=== PATIENT | female | born 1975 | race Caucasian/White ===

== ENCOUNTER → 2020-09-01 | Outpatient (CLI) | payer OTHER ==
--- NOTE | 2020-09-01 09:09 | KCIC ---
CERVICAL SPINE WO CONTRAST History:Reason: CERVICAL RADICULOPATHY / Spl. Instructions: / History: Neck pain into left arm with numbness and tingling since June. Technique: Multiplanar, multi sequential noncontrast MR imaging was performed of the cervical spine. Comparison: None Findings: Normal vertebral body height and alignment. No fracture. No pathologic signal abnormality within the cervical spinal cord. Partially empty sella. C2-C3: No canal or neuroforaminal narrowing. C3-C4: Small disc bulge. No canal narrowing. Left facet arthropathy. Mild left neuroforaminal narrowing. C4-C5: Small disc bulge. No canal narrowing. No neuroforaminal narrowing. Mild facet arthropathy. C5-C6: Small disc bulge. Mild cord flattening. Minimal canal narrowing. Uncovertebral and facet arthropathy on the right. Mild right neuroforaminal narrowing. No left neuroforaminal narrowing. C6-C7: Disc bulge with superimposed left foraminal/diverticular disc extrusion extending into the neuroforamen (series 3 image 5 and series 4 image 4. There is severe left neuroforaminal narrowing due to the disc extrusion compressing the exiting left nerve root. Correlate for radiculopathy. Heterogeneous appearance of the disc extrusion. Mild to moderate canal narrowing. Mild right neuroforaminal narrowing. C7-T1: No canal or neuroforaminal narrowing. Impression: 1. Multilevel cervical spondylosis most prominent C6-C7 with mild to moderate canal narrowing. 2. C6-C7 left foraminal disc extrusion with heterogeneous appearance raising concern for free fragment. 3. Severe left C6-C7 foraminal narrowing due to the disc extrusion with mass effect on the exiting nerve root. Correlate for radiculopathy. 4. Partially empty sella, often incidental, can be seen with intracranial hypertension or panhypopituitarism. Electronically signed by: Ant Coker DO (09/01/2020 9:06 AM) [facility]
== END ==
LOC: KCIC MRI 07:57
PROVIDERS: ATTEND Physician Assistant
DX: M47.22 Other spondylosis with radiculopathy, cervical region (principal); M48.02 Spinal stenosis, cervical region; M50.123 Cervical disc disorder at C6-C7 level with radiculopathy
CPT/HCPCS: 72141

== ENCOUNTER → 2020-09-15 | Outpatient (CLI) | payer OTHER ==
[~2020-09-15] MED LIST: METO-239 PO; PREG50CA91 PO
--- NOTE | 2020-09-15 12:47 | PDOC1 ---
INITIAL PAIN CONSULT DATE OF SERVICE: DOS: DATE: 09/15/20 TIME: 12:39 CHIEF COMPLAINT: Chief Complaint: Neck and left upper extremity pain HISTORY OF PRESENT ILLNESS: 44-year-old female presents with history of pain base the neck left upper extremity for about 2 months now not the result of any specific injury or accident that she is aware of spleen more noticeable 1 morning when she woke up and June of this year and the pain has been there ever since getting worse over time. Patient describes a pain in the base the neck and shoulder in the left upper extremity rating the left deltoid anterior posterior lateral as well as into the triceps and biceps region and forearm both anteriorly posteriorly and into the hand the thumb and first and second finger with numbness and tingling. Patient describes pain is constant sharp throbbing shooting in the left upper extremity with numbness and tingling in the hand radiating worse with repetitive motions worse with reaching overhead with the left arm lifting items driving a car with a left hand and doing fine motor movements are difficult because the numbness in her left hand patient also reports a burning sensation in the shoulder and arm itself. Patient reports it wakes her from sleep release twice a night does not affect her bowel bladder control or ability to walk patient did have some physical therapy July of this year which was helpful but only temporarily and did not have long-lasting effects. Patient rates her disability rating is 0-10 10 being the worst is a 7 in all categories family responsibilities recreation social activity sexual behavior occupation self-care and life support activities. Did have an MRI scan of the cervical spine showing multilevel cervical spondylosis most prominent C6-7 with a C6-7 left foraminal disc extrusion with heterogeneous appearance raising concern for free fragment with severe left C6-7 foraminal narrowing due to the disc extrusion with mass- effect on the exiting nerve root. Patient reports no overt motor loss but significant fatigability with the left upper extremity and left hand. Patient has [facility] year which was only mildly helpful but did not have any long-lasting improvement. Patient continues to do stretching strength exercises on her own at home at least 3 times daily. PAST MEDICAL HISTORY: PMH: Arthritis, tachycardia, cigarette smoking PREVIOUS SURGERIES: Past Surgical Hx: None CURRENT MEDICATIONS: Current Meds: Active Scripts Medications Dose Route/Sig Max Daily Dose Days Date Category Lyrica (Pregabalin) 50 Mg Capsule Unknown Dose PO HS 11/19/20 Reported Metoprolol Succinate ( Xl ) (Metoprolol Succinate) 25 Mg Tab.er.24h 1 Tab PO DAILY 09/15/20 Reported FAMILY HISTORY: Family Hx: No major medical problems or conditions that she is aware of SOCIAL HISTORY: Social Hx: Patient is not drink alcohol does smoke 1 pack cigarettes a day for the past 25 years not use any illegal illicit recreational drugs is lives with her spouse lives locally in [facility]. REVIEW OF SYSTEMS: ROS: Positive for those items mentioned in history of present illness, all systems are reviewed, otherwise negative, is complete full and well-documented on patient's chart PHYSICAL EXAM: VS: Blood pressure is 117/77 pulse 114 respirations 18 temperature 90.1 F height is 5 foot 4 inches weight is 223 pounds PE: PHYSICAL EXAMINATION: GENERAL: The patient is awake, alert, oriented, appropriate, very pleasant demeanor HEENT: Shows normocephalic, atraumatic. Extraocular movements are intact and symmetrical. Oral cavity: Mucous membranes moist and pink. Dentition is intact. NECK: Shows anterior throat supple without palpable lymphadenopathy noted. Swallow reflex symmetrical. CHEST: Shows normal on inspection. Breath sounds are clear bilaterally, no rales rhonchi or wheezes auscultated. HEART: Shows S1, S2 clear. No murmurs auscultated. ABDOMEN: Soft, nontender, nondistended. No palpable organomegaly is noted. No rebound or guarding demonstrated. BACK: Shows spine grossly in the midline. Normal-appearing cervical lordotic curvature. Cervical spine shows good rotation motion both laterally as well as extension flexion with some moderate tenderness with far left lateral rotation past 45 degrees closer to 90 degrees but nontender with right rotation. Patient has good extension good forward flexion without difficulty or pain reported. There is slightly increased thoracic kyphosis, some minor flattening of the lumbar lordotic curvature. Lumbar paraspinous muscles show symmetrical on inspection. The patient has good rotational motion of the lumbar spine, both laterally as well as extension and flexion without significant difficulty. No tenderness over the spinous processes, sacrum or sacroiliac regions. EXTREMITIES: Upper extremities show deep tendon reflexes 2+ in the biceps and triceps tendons. Motor exam is 5 on a scale of 5 with right strength, biceps and triceps flexion and 4/5 on the left. Peripheral pulses are 2+ radial. No peripheral edema is noted bilaterally. Upper extremities are warm and dry to touch, equal in color and appearance. Shoulder shrug is strong and intact without loss of strength on resistance as is abduction of the shoulder 90 degrees without loss of strength on resistance but with some moderate pain reported in the left shoulder and left posterior deltoid and triceps. SKIN: Shows warm and dry, good turgor. No edema. No sores, rashes or bruising throughout. IMPRESSION: Impression: 44-year-old female with 2-month history pain base the neck left shoulder and upper extremity in a radicular fashion following a C6-7 dermatomal distribution. MRI scan cervical spine as noted Arthritis Cigarette smoking Plan: Options were discussed with the patient including conservative medical management physical therapies interventional techniques. She would like to proceed with interventional techniques as she has done physical therapy already and is currently doing exercises and stretching strengthening on her own at home. We wait for preauthorization with her insurance provider once this is obtained we will plan on cervical epidural steroid injection translaminar approach at the C6-7 level. The meantime patient to continue with stretching strengthening physical therapy exercises. SAÚL DYER MD Sep 15, 2020 12:47
== END | disposition home or self-care (01) ==
LOC: PNCL 09:51
PROVIDERS: ATTEND Anesthesiology
DX: M79.602 Pain in left arm (principal); M54.2 Cervicalgia; M19.90 Unspecified osteoarthritis, unspecified site; Z87.891 Personal history of nicotine dependence; Z79.899 Other long term (current) drug therapy
CPT/HCPCS: G0463

== ENCOUNTER → 2020-09-29 | Outpatient (CLI) | payer OTHER ==
[~2020-09-29] MED LIST changes: +IOHEXOL 180 MG/ML 10 ML VIAL. ONE; +methylPREDNISolone ACETATE 40 MG/ML VIAL. ONE; +methylPREDNISolone ACETATE 80 MG/ML VIAL. ONE
--- NOTE | 2020-09-29 12:00 | PDOC ---
Progress Note - Pain Clinic Date of Service: DOS: DATE: 09/29/20 TIME: 11:55 Diagnosis: Dx: Cervical radiculopathy with cervical degenerative disease and cervical herniated disc History or Present Illness: HPI: 45-year-old female returns follow-up status post initial evaluation and preauthorization for cervical epidural steroid injection. Patient is obtained that now would like to proceed. Patient reports still significant pain base the neck left upper extremity shoulder arm radiating mostly the posterior aspect the triceps and the forearm into the hand as it was previously. Patient reports no real change since last visit that she was here for preauthorization. Patient reports her pain is a 7 on scale 10 is worse over the past week 7 on average 6 its least is a 7 today. Patient describes the pain as tingling and burning aching sharp shooting and becoming more constant in the left arm base of the neck on the left. Patient reports no new motor or sensory deficits or other complaints. Physical Exam: VS: Blood pressure is 118/81 pulse 96 respirations 18 temperature 96 F height is 5 foot 4 inches weight is 228 pounds PE: PHYSICAL EXAMINATION: GENERAL: The patient is awake, alert, oriented, appropriate, very pleasant d emeanor HEENT: Shows normocephalic, atraumatic. Extraocular movements are intact and symmetrical. Oral cavity: Mucous membranes moist and pink. NECK: Shows anterior throat supple without palpable lymphadenopathy noted. Swallow reflex symmetrical. CHEST: Shows normal on inspection. Breath sounds are clear bilaterally. HEART: Shows S1, S2 clear. No murmurs auscultated. ABDOMEN: Soft, nontender, nondistended, obese. No palpable organomegaly is noted. No rebound or guarding demonstrated. BACK: Shows spine grossly in the midline. Normal-appearing cervical lordotic curvature. Cervical paraspinous muscles show symmetrical on inspection with palpation some moderate tenderness diffusely bilaterally diffusely without significant radiation. He shows good rotation motion spine both laterally as well as full extension full forward flexion with some moderate pain reported with far left lateral rotation to the left shoulder but not to the right. There is slightly increased thoracic kyphosis, some minor flattening of the lumbar lordotic curvature. s. EXTREMITIES: Upper extremities show deep tendon reflexes 2+ in the biceps and triceps tendons. Motor exam is 5 on a scale of 5 with right rib strength, biceps and triceps flexion and 4/5 on the left. Peripheral pulses are 2+ posterior radial. No peripheral edema is noted bilaterally. Upper extremities are warm and dry to touch, equal in color and appearance. . SKIN: Shows warm and dry, good turgor. No edema. No sores, rashes or bruising throughout. Procedure: Procedure: Options were discussed with the patient. Patient will chart reviews her current medication regimen updated current review of systems updated today as well. We will proceed with a cervical epidural steroid injection today with fluoroscopic guidance. Risks were discussed including but not limited to: Bleeding, infection, possibility of epidural hematoma and subsequent neurological compromise, dural puncture, headaches, spinal cord and/or nerve damage, side effects of steroid medication, and poor results regarding pain control. Patient understands wished to proceed. She will return to clinic in approximate 2 weeks for follow-up was counseled as to return appointment activity level and side effects to be aware of. Medication Injected: Med Injected: Procedure cervical epidural steroid injection at the C6-7 level, using local anesthetic under sterile prep and drape using C-arm fluoroscopic guidance under local anesthesia medications injected ; 120 mg Depo-Medrol + 5 mL normal saline and 2 mL contrast; condition at discharge is stable patient tolerated procedure well. and had no complications Condition at Discharge: Condition at Discharge: Condition at discharge is stable, patient tolerated procedure well and had no complications. SAÚL DYER MD Sep 29, 2020 12:00
== END | disposition home or self-care (01) ==
LOC: PNCL 10:48
PROVIDERS: ATTEND Anesthesiology
DX: M50.10 Cervical disc disorder with radiculopathy, unspecified cervical region (principal); Z79.899 Other long term (current) drug therapy; Z98.890 Other specified postprocedural states
CPT/HCPCS: 62321; J1030; J1040; Q9965

== ENCOUNTER → 2020-10-13 | Outpatient (CLI) | payer OTHER ==
[~2020-10-13] MED LIST changes: -IOHEXOL 180 MG/ML 10 ML VIAL. ONE; -methylPREDNISolone ACETATE 40 MG/ML VIAL. ONE; -methylPREDNISolone ACETATE 80 MG/ML VIAL. ONE
--- NOTE | 2020-10-13 11:01 | PDOC ---
Progress Note - Pain Clinic Date of Service: DOS: DATE: 10/13/20 TIME: 10:57 Diagnosis: Dx: Cervical radiculopathy with cervical genic disease and cervical herniated disc History or Present Illness: HPI: 45-year-old female returns follow-up status post cervical epidural steroid traction x1 September 29, 2020. Patient reports about 60% improvement in the neck and left upper extremity patient ports he is been increasing her activity with greater ease and comfort holding onto items more comfortably and more confidently with the left hand has not been dropping things is very pleased with her progress thus far patient ports he is sleeping better at night does not awaken her from sleep generally but occasionally will she lays on her left side. Patient reports still some pain no radiating to the base the neck and shoulder anterior deltoid posterior tricep into the bicep as well anteriorly into the forearm anteriorly and with some numbness and tingling in the thumb and first and second fingers she reports it is less prominent than it was previously but still present and still causing some significant pain patient rates her pain a 6 on scale 10 is worse over the past week 6 on average 5 its least is a 6 today patient currently is aching and shooting tingling burning radiating in the left upper extremity as previous. Patient reports no new motor or sensory deficits she has been doing some good stretching and strength exercise with her shoulder and neck daily which seems to help to a small extent as well. Physical Exam: VS: Blood pressure is 120/86, pulse is 111 respirations 18 temperature 90.6 3 Fahrenheit height is 5 feet 4 cm 225 pounds PE: PHYSICAL EXAMINATION: GENERAL: The patient is awake, alert, oriented, appropriate, very pleasant demeanor HEENT: Shows normocephalic, atraumatic. Extraocular movements are intact and symmetrical. NECK: Shows anterior throat supple without palpable lymphadenopathy noted. Swallow reflex symmetrical. CHEST: Shows normal on inspection. Breath sounds are clear bilaterally, no rales rhonchi or wheezes. HEART: Shows S1, S2 clear. No murmurs auscultated. ABDOMEN: Soft, nontender, nondistended, obese. No palpable organomegaly is noted. No rebound or guarding demonstrated. BACK: Shows spine grossly in the midline. Normal-appearing cervical lordotic curvature. There is slightly increased thoracic kyphosis, some minor flattening of the lumbar lordotic curvature. Lumbar paraspinous muscles show symmetrical on inspection, on palpation shows some moderate tenderness diffusely throughout the upper, middle and lower distribution of the paraspinous muscles without specific trigger points, without radiation of pain. The patient has good rotational motion of the lumbar spine, both laterally as well as extension and flexion without significant difficulty. No tenderness over the spinous processes, sacrum or sacroiliac regions. EXTREMITIES: Upper extremities show deep tendon reflexes 2+ in the biceps and triceps tendons. 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 Peripheral pulses are 2+ posterior radial. No peripheral edema is noted bilaterally. LUpper extremities are warm and dry to touch, equal in color and appearance. SKIN: Shows warm and dry, good turgor. No edema. No sores, rashes or bruising throughout. Procedure: Procedure: Options were discussed with the patient. Patient chart reviews her current medication regimen updated current review of systems updated today as well. We will preauthorize patient for a second cervical epidural steroid injection she did very well after the first injection with still radicular pain following a C6-7 dermatomal distribution the left arm. Once authorization is achieved we will plan on second cervical epidural to injection translaminar approach at C6-7 level. Patient in the meantime we will continue to do strengthening stretching exercises daily, and oral analgesics will also prescribe Medrol Dosepak patient given instruction as well as side effects aware with the medication and will follow-up as scheduled. Medication Injected: Med Injected: None Condition at Discharge: Condition at Discharge: Condition at discharge is stable. SAÚL DYER MD Oct 13, 2020 11:01
== END | disposition home or self-care (01) ==
LOC: PNCL 10:18
PROVIDERS: ATTEND Anesthesiology
DX: M50.10 Cervical disc disorder with radiculopathy, unspecified cervical region (principal); Z79.899 Other long term (current) drug therapy; Z98.890 Other specified postprocedural states
CPT/HCPCS: 99212; G0463

== ENCOUNTER → 2020-10-27 | Outpatient (CLI) | payer OTHER ==
[~2020-10-27] MED LIST changes: +IOHEXOL 180 MG/ML 10 ML VIAL. ONE; +methylPREDNISolone ACETATE 40 MG/ML VIAL. ONE; +methylPREDNISolone ACETATE 80 MG/ML VIAL. ONE
--- NOTE | 2020-10-27 09:10 | PDOC ---
Progress Note - Pain Clinic Date of Service: DOS: DATE: 10/27/20 TIME: 09:07 Diagnosis: Dx: Cervical radiculopathy with cervical degenerative disease and cervical herniated disc History or Present Illness: HPI: 45-year-old female returns follow-up status post cervical epidural steroid traction x1. Patient was waiting for preauthorization with her insurance provider and has obtained that now would like to proceed. Patient reports pain base the neck left upper extremity as was previously radiating the left arm and forearm rated as a 6 on scale 10 is worse over the past week 6 on average for its least and is a 6 today patient reports tingling burning shooting in the back of the neck and shoulder in the left upper extremity and radiating on and off in intensity but worse with activity better motions reaching overhead and weight lifting. Patient reports is better with laying down as long as she is not wearing her left side is not waking her from sleep. Patient reports no new motor or sensory deficits no new bowel or bladder incontinence or other complaints. Physical Exam: VS: Blood pressure is 149/92 pulse 101 respirations 18 temperature 98.7 F height is 5 foot 4 inches weight is 228 pounds PE: PHYSICAL EXAMINATION: GENERAL: The patient is awake, alert, oriented, appropriate, very pleasant demeanor HEENT: Shows normocephalic, atraumatic. Extraocular movements are intact and symmetrical. NECK: Shows anterior throat supple without palpable lymphadenopathy noted. Swallow reflex symmetrical. CHEST: Shows normal on inspection. Breath sounds are clear bilaterally. HEART: Shows S1, S2 clear. No murmurs auscultated. ABDOMEN: Soft, nontender, nondistended, obese. No palpable organomegaly is noted. No rebound or guarding demonstrated. BACK: Shows spine grossly in the midline. Normal-appearing cervical lordotic curvature. Cervical paraspinous muscles show symmetrical with inspection on palpation some moderate tenderness diffusely bilaterally but more on the left side in the inferior aspect and into the superior medial trapezius without trigger points. Patient shows full rotation motion cervical spine both laterally as well as extension flexion without significant increase in pain. There is slightly increased thoracic kyphosis, some minor flattening of the lumbar lordotic curvature. EXTREMITIES: Upper extremities show deep tendon reflexes 2+ in the biceps and triceps tendons. 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 Peripheral pulses are 2+ posterior radial. No peripheral edema is noted bilaterally. Upper extremities are warm and dry to touch, equal in color and appearance. No edema. No sores, rashes or bruising throughout. Procedure: Procedure: Options were discussed with the patient. Patient will chart reviews her current medication regimen updated current review of systems updated today as well. We will proceed with a second cervical epidural to injection today with fluoroscopi c guidance. Risks were discussed including but not limited to: Bleeding, infection, possibility of epidural hematoma and subsequent neurological compromise, dural puncture, headaches, spinal cord and/or nerve damage, side effects of steroid medication, and poor results regarding pain control. Patient understands wished to proceed. Patient return to the clinic in approximate 2 we eks for follow-up, was counseled as to return appointment activity level and side effects to be aware of. Medication Injected: Med Injected: Procedure cervical epidural steroid injection at the C6-7 level, using local anesthetic under sterile prep and drape using C-arm fluoroscopic guidance under local anesthesia medications injected ; 120 mg Depo-Medrol + 5 mL normal saline and 2 mL contrast; condition at discharge is stable patient tolerated procedure well. and had no complications Condition at Discharge: Condition at Discharge: Condition at discharge stable, patient either procedure well and had no complications. SAÚL DYER MD Oct 27, 2020 09:10
== END | disposition home or self-care (01) ==
LOC: PNCL 08:04
PROVIDERS: ATTEND Anesthesiology
DX: M50.123 Cervical disc disorder at C6-C7 level with radiculopathy (principal); Z79.899 Other long term (current) drug therapy
CPT/HCPCS: 62321; J1030; J1040; Q9965

== ENCOUNTER → 2021-12-21 | Outpatient (CLI) | payer OTHER ==
[~2021-12-21] MED LIST changes: +DEXAMETHASONE PRES.FREE 10 MG/ML VIAL. ONE; -methylPREDNISolone ACETATE 40 MG/ML VIAL. ONE; -methylPREDNISolone ACETATE 80 MG/ML VIAL. ONE
--- NOTE | 2021-12-21 11:04 | PDOC ---
Progress Note - Pain Clinic Date of Service: DOS: DATE: 12/21/21 TIME: 10:58 Diagnosis: Dx: Cervical radiculopathy with cervical degenerative disease and cervical herniated disc History or Present Illness: HPI: 46-year-old female returns last seen October 27, 2020 status post cervical epidural steroid injection with about 75% improvement in the pain in the base the neck and shoulder and left upper extremity. Patient reports did very well for about 1 year the pain is returning now over the past several months gradually increasing radiating in the base of the neck radiating into the left upper extremity posterior deltoid into the triceps and bicep as well as in the forearm anteriorly posteriorly into the hand especially in the fourth and fifth fingers on the left side patient reports is tingling and numb becoming more painful aching sharp in the neck shooting the left arm tingling and burning in the hand radiating can be constant severe with repetitive motions reaching overhead with her left arm reaching forward with repetitive lifting as well as weightbearing and driving using her left hand. Patient reports no loss of motor function with significant fatigability with the left arm and weakness with dropping items recently such as coffee cups and having difficulty with fine m otor movements with the left hand with the using a button or snap and removing twist lids on jars and bottles etc. Patient reports awakens from sleep about every 3 hours but if she lays on the left side. Patient is been doing stretching strengthening exercises that she had learned from previous physical therapy treatments as well as heat and massage applications to the base the neck and the left shoulder but without significant reduction of pain. Patient has been taking Tylenol as well as Profen and Lyrica which generally would help the pain significantly but is not been helping it more than about 20 to 30% here in the last month or so. We reviewed patient's MRI scan showing left foraminal disc extrusion at C6-7 with heterogeneous appearance raising concern for free fragment as well as severe left neuroforaminal narrowing due to disc extrusion compressing the exiting left nerve root. Physical Exam: VS: Blood pressure is 131/89 pulse 114 respirations 18 temperature 98.0 F weight is 231 pounds. PE: PHYSICAL EXAMINATION: GENERAL: The patient is awake, alert, oriented, appropriate, very pleasant in demeanor HEENT: Shows normocephalic, atraumatic. Extraocular movements are intact and symmetrical. Oral cavity: Mucous membranes moist and pink. Dentition is intact. NECK: Shows anterior throat supple without palpable lymphadenopathy noted. Swallow reflex symmetrical. CHEST: Shows normal on inspection. Breath sounds are clear bilaterally, distant but no rales rhonchi wheezes auscultated bilaterally. HEART: Shows S1, S2 clear. No murmurs auscultated. ABDOMEN: Soft, nontender, nondistended. No palpable organomegaly is noted. No rebound or guarding demonstrated. BACK: Shows spine grossly in the midline. Normal-appearing cervical lordotic curvature. Cervical paraspinous muscles show symmetrical inspection, on palpation some moderate tenderness diffusely in the inferior aspect the cervical paraspinous muscles are also into the superior medial trapezius on the left without specific trigger points but the significant tenderness with palpation. Patient does show good rotation of motion cervical spine with some moderate tenderness with far left lateral rotation past 45 degrees but not to the right. Full extension full forward flexion is performed without significant increase in pain. There is slightly increased thoracic kyphosis, some minor flattening of the lumbar lordotic curvature. EXTREMITIES: Upper extremities show deep tendon reflexes 2+ in the biceps and triceps tendons. 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 Peripheral pulses are 2+ radial. No peripheral edema is noted bilaterally. Upper extremities are warm and dry to touch, equal in color and appearance. SKIN: Shows warm and dry, good turgor. No edema. No sores, rashes or bruising throughout. Procedure: Procedure: Options were discussed with the patient. Patient's old chart was reviewed as her current medication regimen updated, and current review of systems updated today as well. We will preauthorize patient for cervical epidural steroid injection as she has clinical C6-7 dermatomal distribution radiculopathy in the left upper extremity. Again, MRI scan was reviewed with the patient today showing significant left foraminal stenosis at the C6-7 level as well. Patient status post physical therapy exercises with stretching strength exercises and heat and massage applications without significant reduction in the pain. Once approved, we will plan on translaminar approach C6-7 level cervical epidural steroid injection with fluoroscopic guidance. Medication Injected: Med Injected: None Condition at Discharge: Condition at Discharge: Condition at discharge is stable. SAÚL DYER MD Dec 21, 2021 11:04
--- NOTE | 2021-12-21 12:30 | PDOC4 ---
Procedure Note: ICD 10 Code: ICD 10 Code: M54.12 M50.30 Procedure Note: Patient was consented for cervical epidural steroid injection with fluoroscopic guidance. Risks were discussed including but not limited to: Bleeding, infection, possibility of epidural hematoma and subsequent neurological compromise, dural puncture, headaches, spinal cord and/or nerve damage, side effects of steroid medication, and poor results regarding pain control. Patient understands and wished to proceed. Procedure cervical epidural steroid injection at the C6-7 level, using local anesthetic under sterile prep and drape using C-arm fluoroscopic guidance under local anesthesia medications injected ; 20 mg dexamethasone +5 mL normal saline and 2 mL contrast; condition at discharge is stable patient tolerated procedure well. and had no complications SAÚL DYER MD Dec 21, 2021 12:30
--- NOTE | 2021-12-21 12:32 | FMN ---
PT PROBLEMS Addendum for visit of December 21, 2021 Patient procedure was approved with return provider while she was here for her visit on this day. We elected to proceed with her procedure today, cervical epidural steroid injection with fluoroscopic guidance. Risk were discussed including but not limited to bleeding infection possibly, and subsequent neur ological compromise dural puncture, headache, spinal cord and/or nerve damage, and side effects steroid medication, as well as poor results regarding pain control. Patient understands wished to proceed. Patient will follow up in approximately 2 weeks as scheduled, was counseled as to return appointment, activity level, and side effect to be aware of. Procedure: Cervical epidural steroid injection at the C6-7 level, using local anesthetic under sterile prep and drape using C-arm fluoroscopic guidance under local anesthesia medications injected; 20 mg dexamethasone +5 mL normal saline and 2 mL contrast; condition at discharge is stable patient tolerated procedure well. and had no complications SAÚL DYER MD Dec 21, 2021 12:32
== END | disposition home or self-care (01) ==
LOC: PNCL 09:57
PROVIDERS: ATTEND Anesthesiology
DX: M50.10 Cervical disc disorder with radiculopathy, unspecified cervical region (principal); M54.12 Radiculopathy, cervical region; Z79.899 Other long term (current) drug therapy
CPT/HCPCS: 62321; J1100; Q9965

== ENCOUNTER → 2022-01-11 | Outpatient (CLI) | payer OTHER ==
[~2022-01-11] MED LIST changes: -DEXAMETHASONE PRES.FREE 10 MG/ML VIAL. ONE; -IOHEXOL 180 MG/ML 10 ML VIAL. ONE
--- NOTE | 2022-01-11 13:49 | KCIC ---
EXAM: Cervical spine MRI without contrast. HISTORY: Cervical radiculopathy. TECHNIQUE: Multiplanar, multisequence magnetic resonance imaging of the cervical spine was performed without contrast. COMPARISON: 09/01/2020 FINDINGS: There is no significant listhesis. The vertebral rascon are normal in height. There is multil evel endplate remodeling. There is no suspicious osseous lesion. There is no acute or subacute fractu re. The skull base and posterior fossa are unremarkable. At C2-C3, there is no stenosis. At C3-C4, there is endplate remodeling. There is mild bilateral facet arthropathy. There is no stenos is. At C4-C5, there is a tiny right paracentral disc protrusion which slightly deforms the right ventral aspect of the spinal cord. There is mild bilateral facet arthropathy. There is no stenosis. At C5-C6, there is a small posterior central disc protrusion which deforms the ventral aspect of the spinal cord. There is mild bilateral facet arthropathy. There is right uncovertebral arthropathy. The re are dilated nerve root sheath cysts/perineural cysts within the neural foramina and extraforaminal spaces. There is mild right foraminal stenosis. At C6-C7, there is a posterior central disc protrusion and left lateral recess to foraminal disc prot rusion superimposed on endplate remodeling. There is bilateral uncovertebral arthropathy. There are d ilated nerve root sheath cysts/perineural cysts within the bilateral neural foraminal and right extra foraminal space. There is mild right and severe left foraminal stenosis. There is deformation of the spinal cord and moderate central canal stenosis measuring 7.0 mm in anterior posterior dimension. IMPRESSION: 1. C6-C7: Large left lateral recess to foraminal disc protrusion contributing to severe left foramina l stenosis, similar compared to the prior exam when allowing for differences in imaging technique. Th ere is also a small posterior central disc protrusion superimposed on endplate remodeling and uncover tebral arthropathy at this level, contributing to mild right foraminal and moderate central canal silver nosis. The degree of central canal stenosis is slightly increased compared to the prior exam. 2. Mild degenerative change within the remainder of the cervical levels, described above. This is unc hanged and associated with mild right foraminal stenosis at C5-C6. Electronically signed by: Tammi Friend MD (01/11/2022 1:47 PM) [id number]
== END ==
LOC: KCIC MRI 11:12
PROVIDERS: ATTEND Physician Assistant
DX: M47.812 Spondylosis without myelopathy or radiculopathy, cervical region (principal); M50.221 Other cervical disc displacement at C4-C5 level; M48.02 Spinal stenosis, cervical region
CPT/HCPCS: 72141

== ENCOUNTER → 2022-02-05 | Outpatient (CLI) | payer OTHER ==
[~2022-02-05] MED LIST changes: +HYDR-2761 PO; +HYDR-2765 PO; +METH-562 PO
--- NOTE | 2022-02-05 11:05 | EKG ---
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
[2022-02-05 11:11] LABS: BASO % 1 % (0-3); EOS # 0.1 x10^3/uL (0.0-0.7); EOS % 1 % (0-3); HEMATOCRIT 46.2 % (36.0-47.0); HEMOGLOBIN 15.9 g/dL (12.0-15.5); LYMPH % 25 % (24-48); MEAN CORPUSCULAR HEMOGLOBIN 30 pg (25-35); MEAN CORPUSCULAR HGB CONC 35 g/dL (31-37); MEAN CORPUSCULAR VOLUME 88 fL (79-100); MONO # 0.5 x10^3/uL (0.0-1.1); MONO % 6 % (0-9); NEUT # 5.6 x10^3/uL (1.8-7.7); NEUT % 69 % (31-73); PLATELET COUNT 326 x10^3/uL (140-400); RED BLOOD COUNT 5.23 x10^6/uL (3.50-5.40); RED CELL DISTRIBUTION WIDTH 12.7 % (11.5-14.5); WHITE BLOOD COUNT 8.2 x10^3/uL (4.0-11.0)
[2022-02-05 11:34] LABS: ALBUMIN 4.2 g/dL (3.4-5.0); ALBUMIN/GLOBULIN RATIO 1.2 (1.0-1.7); CALCIUM 9.1 mg/dL (8.5-10.1); CREATININE 0.9 mg/dL (0.6-1.0); GFR 67.7; TOTAL BILIRUBIN 0.4 mg/dL (0.2-1.0); TOTAL PROTEIN 7.6 g/dL (6.4-8.2)
== END ==
LOC: SURGPAT 10:32
PROVIDERS: ATTEND Neurological Surgery
DX: Z01.818 Encounter for other preprocedural examination (principal); M50.123 Cervical disc disorder at C6-C7 level with radiculopathy
CPT/HCPCS: 36415; 80053; 85025; 87641; 93005

== ENCOUNTER 2022-02-08 06:40 | Observation (INO) | payer OTHER ==
[2022-02-05 10:59] VITALS: BP 116/76
--- NOTE | 2022-02-07 13:11 | PREOP HP ---
DATE OF SERVICE: 02/08/2022 HISTORY OF PRESENT ILLNESS: The patient is a pleasant 46-year-old who is having difficulty with neck and left arm pain. She says that she has a constant burning and throbbing pain in her neck. She says her left arm feels painful and numb and tingly. Her left arm feels weak. The problem began about 2 years ago, but resolved with epidural steroid injections. The problem returned around Zara time of 2020. She did have a cervical epidural steroid injection on 12/18/2021 with no relief. She has had at least 10 visits with her chiropractor with no improvement. She rates her pain 10/10, now. With lying down and a heating pad, her pain can reach 5/10. Walking or looking up or sitting too long increases her pain. She is taking Lyrica and Tylenol. She has been off work since 12/26 because of this problem. She says that she has difficulty sleeping because of this problem. CURRENT MEDICATIONS: Tylenol, Lyrica, Zoloft. PAST MEDICAL HISTORY: Neck pain. PAST SURGICAL HISTORY: Tonsillectomy. FAMILY HISTORY: Noncontributory. 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 Smokes 1 pack per day for 20 years. Drinks alcohol 1-2 times per year. ALLERGIES: No known drug allergies. REVIEW OF SYSTEMS: A 12-point review of systems was performed and is noncontributory except that mentioned above. PHYSICAL EXAMINATION: GENERAL: Alert, pleasant, in no acute distress. HEENT: Head is normocephalic, atraumatic. NECK: Moderate tenderness with palpation of the posterior cervical region. SKIN: Warm and dry. MUSCULOSKELETAL: Cervical paraspinal muscle bulk is normal, cervical range of motion is restricted, normal range of motion of the upper extremities bilaterally. EXTREMITIES: No clubbing, cyanosis or edema. NEUROLOGIC: Alert and oriented x 3. Strength is 5/5 in the upper and lower extremities except left triceps is 4+/5, sensory was intact to light touch in the upper and lower extremities except decreased sensation in the left middle and index finger, reflexes were present and symmetric in the upper and lower extremities bilaterally. Normal gait. IMAGING: I reviewed a cervical MRI scan. On that study at C6-7, there is a large left lateral recess foraminal disk protrusion contributing to severe left foraminal stenosis. There is moderate central canal stenosis. ASSESSMENT AND PLAN: I believe her symptoms are related to the herniated disk at C6-C7. I have recommended an anterior cervical diskectomy and fusion at C6-7. I spoke with her about the surgery and the risks involved. I spoke about the soft tissue structures of the neck and sequelae of injury to these. We spoke about the expected postoperative course. We spoke about smoking cessation and the significance of that. She understands all this and strongly like to proceed. We will make the arrangements. KEI/TOMMY DR: Talon TID: [id number]
[2022-02-08] VITALS (10 sets, daily range): BP systolic 93–121; BP diastolic 55–77
[~2022-02-08] VITALS: Ht 162.6 cm; Wt 103.2 kg
[~2022-02-08 06:40] MED LIST changes: -HYDR-2765 PO; +HYDROmorphone 2 MG/ML INJ. IVP PRN; +IV RINGERS,LACTATED 1000ML 1,000 ML IV SCH; -METH-562 PO; +MORPHINE SULFATE 2 MG/ML INJ. IVP PRN; +PROCHLORPERAZINE 10 MG/2 ML VIAL. IVP PRN; +ceFAZolin SODIUM 1 GM in IV NORMAL SALINE 1000ML BAG 1,000 ML IRR ONE; +fentaNYL PF VIAL 100 MCG/2 ML VIAL IVP PRN
[2022-02-08] MEDS ORDERED: BUPIVACAINE-EPI 0.5% 30 ML VIAL KIT. ONE (06:41)
[2022-02-08] MEDS ORDERED: THROMBIN TOPICAL 20,000 UNIT SPRAY.SYRN KIT TP ONE (06:41)
[2022-02-08] MEDS ORDERED: GELATIN SPONGE SIZE 100. ONE (06:41)
[2022-02-08] MEDS ORDERED: PROPOFOL 10 MG/ML (20ML) VIAL. IV ONE (07:37)
[2022-02-08] MEDS ORDERED: ONDANSETRON PF 4 MG/2 ML VIAL. ONE (07:37)
[2022-02-08] MEDS ORDERED: PHENYLEPHRINE 10 MG/ML VIAL. ONE (07:37)
[2022-02-08] MEDS ORDERED: DEXAMETHASONE SOD PHOS 4 MG/ML VIAL ONE (07:37)
[2022-02-08] MEDS ORDERED: LIDOCAINE 2% PF 5 ML VIAL. ONE (07:37)
[2022-02-08] MEDS ORDERED: REMIFENTANIL 1 MG VIAL. IV ONE ×2 (07:37→10:24)
[2022-02-08] MEDS ORDERED: PROPOFOL 50 ML IV ONE (07:37)
[2022-02-08] MEDS ORDERED: SEVOFLURANE > 120 MINUTES. IH ONE (07:37)
[2022-02-08] MEDS ORDERED: DEXAMETHASONE SOD PHOS 20 MG/5 ML VIAL. ONE (07:38)
[2022-02-08] MEDS ORDERED: KETOROLAC 30 MG/ML VIAL. ONE (07:38)
[2022-02-08] MEDS ORDERED: KETAMINE HCL IN NACL, ISO-OSM 50 MG/5 ML SYRINGE ONE (07:38)
[2022-02-08] MEDS ORDERED: SUCCINYLCHOLINE 200 MG/10 ML VIAL. ONE (07:38)
[2022-02-08] MEDS ORDERED: fentaNYL PF VIAL 100 MCG/2 ML VIAL ONE (07:55)
[2022-02-08] MEDS ORDERED: HYDROmorphone 2 MG/ML INJ. ONE (11:57)
[2022-02-08] MEDS ORDERED: CALCIUM CARBONATE 500 MG TAB.CHEW PO PRN (12:15)
[2022-02-08] MEDS ORDERED: MAG HYDROX/ALUMINUM HYD/SIMETH 30 ML ORAL.SUSP PO PRN (12:15)
[2022-02-08] MEDS ORDERED: NALOXONE 0.4 MG/ML VIAL. IV PRN (12:15)
[2022-02-08] MEDS ORDERED: ACETAMINOPHEN 325 MG TABLET. PO PRN (12:15)
[2022-02-08] MEDS ORDERED: diphenhydrAMINE HCL 25 MG CAPSULE PO PRN (12:15)
[2022-02-08] MEDS ORDERED: 0.9 % SODIUM CHLORIDE 10 ML DISP.SYRIN. IV PRN (12:15)
[2022-02-08] MEDS ORDERED: MAGNESIUM HYDROXIDE 2,400 MG/30 ML ORAL.SUSP. PO PRN (12:15)
[2022-02-08] MEDS ORDERED: ONDANSETRON PF 4 MG/2 ML VIAL. IVP PRN (12:15)
[2022-02-08] MEDS ORDERED: METHOCARBAMOL 750 MG TABLET PO PRN (12:15)
[2022-02-08] MEDS ORDERED: HYDROcodone/APAP 7.5/325MG 1 TAB TABLET PO PRN (12:30)
--- NOTE | 2022-02-08 13:50 | NUR ---
Arrived to unit by bed from PACU. Awake and oriented x's 4. Able to move all extremities without difficulty. Radial and pedal pulses + bilaterally. Anterior neck dressing is d/i with soft collar and ice pack. O2 at 2l per n/c. IVF intact and infusing. CELSA's and KATARZYNA's on bilaterally. Oriented to room and controls. Side rails up x's 2 with call light in reach. Spouse at bedside. Cont. monitor.
[2022-02-08] MEDS ORDERED: ceFAZolin SODIUM IV Push 1 GM VIAL. IVP SCH (14:00)
--- NOTE | 2022-02-08 15:07 | OP ---
DATE OF SURGERY: 02/08/2022 PREOPERATIVE DIAGNOSIS: Herniated disc, C6-C7, left with left cervical radiculopathy. POSTOPERATIVE DIAGNOSIS: Herniated disc, C6-7, left with left cervical radiculopathy. OPERATION PERFORMED: Anterior cervical microdiscectomy C6-C7, anterior cervical interbody fusion C6-C7, anterior cervical plate C6-C7. The operation was done with EMG monitoring, SSEP monitoring, fluoroscopy, microscopic dissection, NIMS monitoring, motor evoked potentials. SURGEON: Alan Evans M.D. CONDUIT HELPER: JUANA Jain; assisted with the surgery. She assisted with the exposure, decompression and microdiscectomy as well as the closure. OPERATIVE INDICATIONS: This is a pleasant 46-year-old who developed intractable neck and left arm pain, which failed conservative measures. She had a moderately large focal disc herniation at C6-C7, which was partially in the foramen and I recommended anterior cervical microdiscectomy and fusion after she failed conservative measures. I spoke about the surgery and the risks, she understood and wished to go ahead. DESCRIPTION OF PROCEDURE: Following general endotracheal anesthesia, the patient was positioned supine on the operating table. The anterior cervical region was then prepped and draped in the standard fashion. CELSA hose and AV impulse boots were applied for DVT prophylaxis. The microscope was draped, fluoroscopy was draped and brought into field. Monitoring was established. Ancef 2 grams given less than one hour prior to initiation of surgery. Using fluoroscopic guidance, incision was made from the midline around to the right side and a small skin crease. I dissected down through skin, subcutaneous tissue and through the fat and the platysma and then around the medial aspect of the sternocleidomastoid and then followed this plane down medial to the carotid artery down the anterior cervical vertebral body. I reflected the trachea and esophagus contralaterally with the handheld Cloward instruments. Her tissue was quite thick and tenacious. I gently created an exposure, confirmed my position at C6-C7 fluoroscopic imaging. I placed retractors wedged in the longus colli muscle bilaterally and then placed 14 mm pins in C6 and C7, incised the annulus. During this time, I brought the microscope in and the remainder of the surgery was done with the microscope using microscopic technique. I scraped away the cartilaginous endplate and used pituitaries to remove disc posteriorly. I trimmed disc material away and osteophytic spurring and then I drilled the posterior lipping and trimmed this laterally bilaterally. I then worked down and remove the ligament and exposing the underlying herniated disc fragment, which I then gently grasped as I worked to the left side and then teased back a very large fragment. I could visualize the dura at this point and I worked down laterally and I assured myself there were no retained fragments. I worked to the contralateral side and again there were no fragments. I scraped cartilaginous endplate. I measured and placed a 7 mm interbody fusion cage after I obtained perfect hemostasis. I used a 21 mm a Republic plate and four 14 mm screws, which were all locked. I irrigated copiously. I worked gently and I assured myself that there was perfect hemostasis. Fluoroscopic images showed good position of the plate. I removed the retractors and I assured myself of excellent hemostasis and I closed the wound in layers with absorbable suture. The skin closed with a 4-0 subcuticular stitch. I felt the surgery went very well. KALI/KAYODE DR: Ondina TID: [id number] BRENT
[2022-02-08] MEDS: HYDROcodone/APAP 7.5/325MG 1 TAB TABLET PO PRN ×2 (15:24→19:44)
[2022-02-08] MEDS: POTASSIUM CL 20MEQ D5-0.45NACL 1,000 ML IV SCH (15:25)
[2022-02-08] MEDS: ceFAZolin SODIUM IV Push 1 GM VIAL. IVP SCH (17:34)
[2022-02-08] MEDS: DOCUSATE SODIUM 100 MG CAPSULE. PO SCH (20:46)
[2022-02-08] MEDS ORDERED: PREGABALIN 50 MG CAPSULE PO SCH (21:00)
[2022-02-08] MEDS: fentaNYL PF VIAL 100 MCG/2 ML VIAL IVP PRN (23:23)
[2022-02-09] MEDS: ceFAZolin SODIUM IV Push 1 GM VIAL. IVP SCH ×2 (01:12→07:52)
[2022-02-09 03:00] VITALS: BP 110/64
[2022-02-09] MEDS: fentaNYL PF VIAL 100 MCG/2 ML VIAL IVP PRN (03:44)
[2022-02-09] MEDS: POTASSIUM CL 20MEQ D5-0.45NACL 1,000 ML IV SCH (03:45)
[2022-02-09 07:30] VITALS: BP 118/73
--- NOTE | 2022-02-09 07:35 | NUR ---
Up in room, doing well. Complaining of reflux will give Mylanta. Neck pain is better this am. Cont. monitor.
[2022-02-09] MEDS: DOCUSATE SODIUM 100 MG CAPSULE. PO SCH (07:46)
[2022-02-09 07:51] VITALS: BP 118/73
[2022-02-09] MEDS ORDERED: METOPROLOL SUCC 24HR ER 25 MG TAB.ER.24H. PO SCH (09:00)
[2022-02-09] MEDS ORDERED: HYDR-2765 PO (10:18)
[2022-02-09] MEDS ORDERED: METH-562 PO (10:18)
--- NOTE | 2022-02-09 10:19 | DISCH ---
DISCHARGE INSTRUCTIONS Condition on Discharge Condition on Discharge: Stable Activity After Discharge Activity Instructions for Disc: Activity as tolerated, Avoid exertion Other activity instructions: NO DRIVING FOR A WEEK, SOFT COLLAR FOR COMFORT Bathing Instructions: Shower-keep dressing dry, No Tub Bath until see Lifting Instructions after Dis: No heavy lifting, No pulling or pushing, Do not lift >10 pounds Diet after Discharge Additional Diet Restrictions: RESUME HOME DIET Wound Incision Care Wound/Incision Care: Ice to area for comfort Other wound/incision instructi: MAY REMOVE DRESSING IN 48 HOURS IF DRY, NO SOAKING Contacting the after DC Call your doctor for: Concerns you may have Follow-Up Follow up with: DR. SON IN 2 WEEKS [phone] QUINCY SON MD Feb 09, 2022 10:19
[2022-02-09] MEDS: HYDROcodone/APAP 7.5/325MG 1 TAB TABLET PO PRN (11:27)
--- NOTE | 2022-02-09 11:45 | NUR ---
Discharge instructions given with handouts. Answered questions and concerns. Verbalized understanding. Pt discharged home accompanied by daughter. Escorted out by w/c.
--- NOTE | 2022-02-12 15:11 | PATHOLOGY ---
[facility] Accession Number: [id number] . 01 Material submitted: . vertebral column - CERVICAL DISC . 01 Clinical history: . CERVICAL HERNIATED DISC WITH RADICULOPATHY ACDF C6-7 . 02 Diagnosis: Segments of fibrocartilaginous tissue and bone, "cervical disc": - Degenerative changes of fibrocartilaginous tissue. . ([facility]:mm; 02/12/2022) [facility] 02/12/2022 1323 Local . 02 Comment: There is no evidence of an acute inflammatory process or malignancy. . ([facility]:mml; 02/12/2022) . 02 Electronically signed: . Odilon Sam MD, Pathologist NPI- [id number] . 01 Gross description: . The specimen is received in formalin, labeled "Alejandra Vicente, cervical disc". Received are multiple segments of pale murcia to pink-murcia fibrous tissue admixed with fragments of gritty bone measuring 2.5 x 2.5 x 0.8 cm in aggregate dimensions. The specimen is submitted representatively in cassette A1, following light decalcification. ([facility]; 02/09/2022) NRI/NRI 02/09/2022 0843 Local . 02 Pathologist provided ICD-10: M50.323 . 02 CPT . 825159, [id number] Specimen Comment: A courtesy copy of this report has been sent to [phone] Specimen Comment: Report sent to Performed at: 01 [facility] [address] [facility] [address] [address], [place], [place] [id number] MD Tomas Sebastian MD Phone: [phone] Performed at: 02 [facility] [address] [place], [place] [id number] MD Odilon Sam MD Phone: [phone]
== END 2022-02-09 11:56 | disposition home or self-care (01) ==
LOC: SURG 06:40 → 4 NORTH 12:09
PROVIDERS: ADMIT Neurological Surgery; ATTEND Neurological Surgery
DX: M50.123 Cervical disc disorder at C6-C7 level with radiculopathy (principal); Z20.822 Contact with and (suspected) exposure to COVID-19; G89.29 Other chronic pain; M50.23 Other cervical disc displacement, cervicothoracic region; M79.602 Pain in left arm; F17.200 Nicotine dependence, unspecified, uncomplicated; Z90.49 Acquired absence of other specified parts of digestive tract; Z79.899 Other long term (current) drug therapy; Z98.890 Other specified postprocedural states
CPT/HCPCS: 22551; 22845; 22853; 81025; 88304; 88311; 96374; 96375; 96376; 97116; 97162; 97530; A4364; A4556; A4930; A6254; A6258; C1713; C1821; G0378; G0379; J0330; J0690; J1100; J1170; J2370; J2405; J2704; J3010; J3480; J3490; J7030; 76000; A4222; A4657; J1885